=== PATIENT | male | born 1965 | race Caucasian/White ===

== ENCOUNTER 2017-03-12 14:18 | Day surgery (SDC) | payer BC, OTHER ==
[~2017-03-12] VITALS: Ht 182.9 cm; Wt 83.7 kg
[2017-03-12 14:54] VITALS: BP 132/95
[2017-03-12] MEDS ORDERED: MIDAZOLAM 1 MG/ML, 2ML ONE (15:05)
[2017-03-12] MEDS ORDERED: FENTANYL PF 100 MCG/2ML ONE (15:05)
[2017-03-12] MEDS ORDERED: BUPIVACAINE/PF 0.5% ONE (15:27)
[2017-03-12] MEDS ORDERED: MULTIVITAMIN PO (15:32)
[2017-03-12] MEDS ORDERED: LACTATED RINGERS 1,000 ML IV SCH ×2 (15:34→18:30)
[2017-03-12] MEDS ORDERED: KETOROLAC 30 MG/1 ML ONE (15:52)
[2017-03-12] MEDS ORDERED: LABETALOL 5MG/ML, 20ML IV PRN (16:30)
[2017-03-12] MEDS ORDERED: EPHEDRINE 50 MG/ML, 1ML IVPush PRN (16:30)
[2017-03-12] MEDS ORDERED: ONDANSETRON 2MG/ML, 2ML IVPush PRN (16:30)
[2017-03-12] MEDS ORDERED: hydrALAzine 20 MG/ML, 1ML IV PRN (16:30)
[2017-03-12] MEDS ORDERED: HYDROcodone/APAP 7.5-325MG/15ML UDC PO PRN (16:30)
[2017-03-12] MEDS ORDERED: FENTANYL PF 100 MCG/2ML IV PRN (16:30)
[2017-03-12] MEDS ORDERED: HYDROmorphone 1 MG/ML, 1ML IV PRN (16:30)
[2017-03-12] MEDS ORDERED: DIAZEPAM 5 MG/ML, 2ML IVPush PRN (16:30)
[2017-03-12] MEDS ORDERED: METOPROLOL 1 MG/ML, 5ML IV PRN (16:30)
[2017-03-12] MEDS ORDERED: ACETAMINOPHEN 325 MG TABLET PO PRN ×2 (16:30→18:30)
[2017-03-12] MEDS ORDERED: PROMETHAZINE 25 MG/ML, 1ML IV PRN (16:30)
[2017-03-12] MEDS ORDERED: OXYcodone 5 MG/5 ML ORAL.SOL UDC PO PRN (16:30)
[2017-03-12] MEDS ORDERED: MIDAZOLAM 1 MG/ML, 2ML IV PRN (16:30)
[2017-03-12] MEDS ORDERED: ALBUTEROL SULFATE 2.5 MG/3 ML NPPB PRN (16:30)
[2017-03-12] MEDS ORDERED: MEPERIDINE/PF 25MG/0.5ML IVPush PRN (16:30)
[2017-03-12] MEDS ORDERED: CEFAZOLIN 1,000 MG ONE (16:51)
[2017-03-12] MEDS ORDERED: ONDANSETRON 2MG/ML, 2ML ONE (16:51)
[2017-03-12] MEDS ORDERED: DEXAMETHASONE 4 MG/ML, 1ML ONE (16:51)
[2017-03-12] MEDS ORDERED: PROPOFOL 10 MG/ML, 20ML ONE (16:51)
[2017-03-12] MEDS ORDERED: ACETAMINOPHEN 650 MG/20.3 ML UDC ONE (17:31)
[2017-03-12] MEDS ORDERED: OXYcodone 5 MG/5 ML ORAL.SOL UDC ONE (17:32)
[2017-03-12] MEDS ORDERED: morphine SULFATE 10 MG/ML, 1ML IV PRN (18:30)
[2017-03-12] MEDS ORDERED: KETOROLAC 30 MG/1 ML IV SCH (18:30)
[2017-03-12] MEDS ORDERED: ONDANSETRON 2MG/ML, 2ML IV PRN (18:30)
[2017-03-12] MEDS ORDERED: PROMETHAZINE 25 MG/ML, 1ML IM PRN (18:30)
[2017-03-12] MEDS ORDERED: OXYcodone/APAP 5/325MG TABLET PO PRN (18:30)
== END 2017-03-12 19:45 | disposition home or self-care (01) ==
LOC: OR 14:18 → 4NOR 18:13 → OR 19:45
PROVIDERS: ATTEND Orthopaedic Surgery
DX: S46.211A Strain of muscle, fascia and tendon of other parts of biceps, right arm, initial encounter (principal); Z88.1 Allergy status to other antibiotic agents; X58.XXXA Exposure to other specified factors, initial encounter; Y93.89 Activity, other specified; Y92.89 Other specified places as the place of occurrence of the external cause; Y99.8 Other external cause status
CPT/HCPCS: 24342; 73070; 76000; C1713; J0690; J1100; J1885; J2250; J2405; J2704; J3010; J3490